=== PATIENT | male | born 1935 | race Caucasian/White ===

== ENCOUNTER 2022-08-19 09:32 | Emergency (ER) | payer OTHER ==
[2022-08-19] MEDS ORDERED: LEVALBUTEROL 1.25 MG/3 ML NEB ONE (09:49)
[2022-08-19] MEDS ORDERED: IPRATROPIUM BROM 0.5MG/2.5ML ONE (09:50)
[2022-08-19 10:07] LABS: Absolute Lymphocytes (CBC) 0.6 K/uL (0.7-4.9); Hematocrit 32.9 % (39.6-49.0); Lymphocytes % 3.5 % (15.3-44.8); MPV 8.9 fL (7.6-11.3); RBC Red Blood Cell Count 3.57 M/uL (4.33-5.43)
[2022-08-19 10:20] LABS: Potassium 3.7 mmol/L (3.5-5.1)
--- NOTE | 2022-08-19 10:32 | RAD REPORT ---
EXAM DESCRIPTION: RAD - Chest Pa And Lat (2 Views) - 08/19/2022 10:26 am CLINICAL HISTORY: Cough Chest pain. COMPARISON: Chest Single View dated 08/11/2016 TECHNIQUE: PA and lateral views of the chest were obtained. FINDINGS: The lungs are hyperexpanded compatible with COPD. The heart is upper limit of normal in si ze. No fracture or aggressive bony process. IMPRESSION: COPD without acute process identified.
[2022-08-19 10:42] LABS: SARS-COV-2 RT PCR NEGATIVE (NEGATIVE)
--- NOTE | 2022-08-19 11:01 | EDPHYS ---
Physician Documentation [facility] Name: Julio Pool Age: 86 yrs Sex: Male : 1935 Arrival Date: 08/19/2022 Time: 09:35 Bed 4 Private MD: ED Physician Sudhir Small HPI: 08/19 10:31 This 86 yrs old Male presents to ER via Ambulatory with complaints of Congestion, kb Cough, Shortness Of Breath. 10:31 The patient or guardian reports cough, that is intermittent, described as mild, kb difficulty breathing, flu symptoms, low-grade fever. Onset: The symptoms/episode began/occurred 4 day(s) ago. Severity of symptoms: At their worst the symptoms were moderate, in the emergency department the symptoms are unchanged. Modifying factors: The symptoms are alleviated by nothing, the symptoms are aggravated by nothing. Associated signs and symptoms: Pertinent positives: fever. The patient has not experienced similar symptoms in the past. The patient has not recently seen a physician. Pt reports cough, congestion and shortness of breath on exertion that started 3-4 days ago. Reports fever initially that has resolved. . Historical: - Allergies: 09:57 No Known Allergies; kc6 - Home Meds: 09:57 losartan Oral [Active]; aspirin 81 mg Oral TbEC 1 tab once daily [Active]; Prednisone kc6 Oral [Active]; Flomax Oral [Active]; - PMHx: 09:57 Hyperlipidemia; Hypertension; Gastric Reflux; polymyagliarheumatica; kc6 - PSHx: 09:57 None; kc6 - Immunization history:: Client reports receiving the 2nd dose of the Covid vaccine, Flu vaccine is up to date. - Social history:: Smoking status: Patient denies any tobacco usage or history of. ROS: 10:30 Abdomen/GI: Negative for abdominal pain, nausea, vomiting, diarrhea, and constipation. kb 10:30 Constitutional: Positive for fever, malaise. 10:30 Respiratory: Positive for cough, dyspnea on exertion, shortness of breath. 10:30 All other systems are negative. Exam: 10:30 Constitutional: This is a well developed, well nourished patient who is awake, alert, kb and in no acute distress. Head/Face: Normocephalic, atraumatic. ENT: Moist Mucous membranes Cardiovascular: Regular rate and rhythm with a normal S1 and S2. No gallops, murmurs, or rubs. No pulse deficits. Abdomen/GI: Soft, non-tender. No distention Back: No spinal tenderness. No costovertebral tenderness. Full range of motion. Skin: Warm, dry with normal turgor. Normal color. MS/ Extremity: Pulses equal, no cyanosis. Neurovascular intact. Full, normal range of motion. Neuro: Awake and alert, GCS 15, oriented to person, place, time, and situation. Moves all extremities. Normal gait. Psych: Awake, alert, with orientation to person, place and time. Behavior, mood, and affect are within normal limits. 10:30 Respiratory: the patient does not display signs of respiratory distress, Respirations: normal, Breath sounds: wheezing: expiratory that is mild, is heard in the left upper lobe and left lower lobe. Vital Signs: 09:55 BP 186 / 84; Pulse 93; Resp 18 S; Temp 97.7(TE); Pulse Ox 92% on R/A; Weight 74.84 kg kc6 (R); Height 5 ft. 10 in. (177.80 cm) (R); Pain 0/10; 09:55 Body Mass Index 23.67 (74.84 kg, 177.80 cm) kc6 MDM: 09:38 Patient medically screened. kb 10:30 Data reviewed: vital signs, nurses notes. Data interpreted: Pulse oximetry: on room air kb is 92 %. Interpretation: acceptable. 10:54 Counseling: I had a detailed discussion with the patient and/or guardian regarding: the kb historical points, exam findings, and any diagnostic results supporting the discharge/admit diagnosis, lab results, radiology results, the need for outpatient follow up, a family practitioner, to return to the emergency department if symptoms worsen or persist or if there are any questions or concerns that arise at home. 11:04 Response to treatment: the patient's symptoms have markedly improved after treatment. kb ED course: Pt reports he feels almost back to normal after neb treatment. Pt has been on steroids for some time and currently tapering off. . 08/19 09:43 Order name: CBC with Diff; Complete Time: 10:18 kb 08/19 09:43 Order name: Basic Metabolic Panel; Complete Time: 10:22 kb 08/19 09:43 Order name: Chest Pa And Lat (2 Views) XRAY; Complete Time: 10:41 kb 08/19 09:43 Order name: COVID-19/FLU A+B; Complete Time: 10:50 kb 08/19 09:43 Order name: IV Start; Complete Time: 09:55 kb Administered Medications: :55 Drug: Xopenex (levalbuterol) 1.25 mg Route: Inhalation; kc6 10:11 Follow up: Response: No adverse reaction 6 09:55 Drug: AtroVENT (ipratropium) Aerosol 0.5 mg Route: Inhalation; kc6 10:10 Follow up: Response: No adverse reaction kc6 Disposition: 11:46 PA/[employer]'s history reviewed, patient interviewed, and examined. I agree with assessment [id number] and care plan and confirm the diagnosis (es) above. Attestation: The patient's history, exam findings, diagnostics, and a summary of any interventions or procedures was reviewed in detail with Jacquelyn KRUGER. Disposition Summary: 08/19/22 11:01 Discharge Ordered Location: Home kb Condition: Stable kb Diagnosis - Cough kb - Fever, unspecified kb Followup: kb - With: Emergency Department - When: As needed - Reason: Worsening of condition Followup: kb - With: Private Physician - When: 2 - 3 days - Reason: Recheck today's complaints, Continuance of care, Re-evaluation by your physician Discharge Instructions: - Discharge Summary Sheet kb - Acute Bronchitis, Adult, [id number] kb - Cough, Adult, [id number] kb - Chronic Obstructive Pulmonary Disease Exacerbation, [id number] kb Forms: - Medication Reconciliation Form kb - Thank You Letter kb - Antibiotic Education kb - Prescription Opioid Use kb Prescriptions: - albuterol sulfate 90 mcg/actuation Inhalation HFA aerosol inhaler - inhale 2 puff by INHALATION route every 4-6 hours As needed; 1 Inhaler; kb Refills: 0, Product Selection Permitted - Zithromax 500 mg Oral Tablet - take 1 tablet by ORAL route once daily for 5 days; 5 tablet; Refills: 0, kb Product Selection Permitted Signatures: Dispatcher [employer] Jacquelyn Bean FNP-C FNP-Ckb Rosillo, Jose, MD MD [id number] Silvia Hanson RN RN kc6
--- NOTE | 2022-08-19 11:01 | ER ---
Nurse's Notes [facility] Name: Julio Pool Age: 86 yrs Sex: Male : 1935 Arrival Date: 08/19/2022 Time: 09:35 Bed 4 Private MD: Diagnosis: Cough;Fever, unspecified Presentation: 08/19 09:55 Chief complaint: Patient states: he has been short of breath with cough and congestion kc6 since tuesday. Coronavirus screen: Vaccine status: Patient reports receiving the 2nd dose of the covid vaccine. At this time, the client does not indicate any symptoms associated with coronavirus-19. Ebola Screen: No symptoms or risks identified at this time. Initial Sepsis Screen: Does the patient meet any 2 criteria? No. Patient's initial sepsis screen is negative. Does the patient have a suspected source of infection? No. Patient's initial sepsis screen is negative. Risk Assessment: Do you want to hurt yourself or someone else? Patient reports no desire to harm self or others. Onset of symptoms was August 15, 2022. 09:55 Method Of Arrival: Ambulatory [facility] 09:55 Acuity: JANNET 3 kc6 Triage Assessment: 09:59 General: Appears in no apparent distress. comfortable, Behavior is calm, cooperative, kc6 appropriate for age. Pain: Denies pain. EENT: Reports nasal congestion. Neuro: Cano Agitation-Sedation Scale (RASS): 0 - Alert and Calm Level of Consciousness is awake, alert, obeys commands, Oriented to person, place, time, situation, Appropriate for age. Cardiovascular: Heart tones S1 S2 present Capillary refill < 3 seconds. Respiratory: Reports shortness of breath cough that is productive, Airway is patent Trachea midline Respiratory effort is even, unlabored, Respiratory pattern is regular, symmetrical, Breath sounds are clear bilaterally. GI: No signs and/or symptoms were reported involving the gastrointestinal system. : No signs and/or symptoms were reported regarding the genitourinary system. Derm: No signs and/or symptoms reported regarding the dermatologic system. Skin is intact, Skin is pink, warm \T\ dry. Musculoskeletal: No signs and/or symptoms reported regarding the musculoskeletal system. Circulation, motion, and sensation intact. Capillary refill < 3 seconds, Range of motion: intact in all extremities. Historical: - Allergies: 09:57 No Known Allergies; kc6 - Home Meds: 09:57 losartan Oral [Active]; aspirin 81 mg Oral TbEC 1 tab once daily [Active]; Prednisone kc6 Oral [Active]; Flomax Oral [Active]; - PMHx: 09:57 Hyperlipidemia; Hypertension; Gastric Reflux; polymyagliarheumatica; kc6 - PSHx: 09:57 None; kc6 - Immunization history:: Client reports receiving the 2nd dose of the Covid vaccine, Flu vaccine is up to date. - Social history:: Smoking status: Patient denies any tobacco usage or history of. Screenin:01 [facility] ED Fall Risk Assessment (Adult) History of falling in the last 3 months, kc6 including since admission No falls in past 3 months (0 pts) Confusion or Disorientation No (0 pts) Intoxicated or Sedated No (0 pts) Impaired Gait No (0 pts) Mobility Assist Device Used No (0 pt) Altered Elimination No (0 pt) Score/Fall Risk Level 0 - 2 = Low Risk. Abuse screen: Denies threats or abuse. Denies injuries from another. Nutritional screening: No deficits noted. Tuberculosis screening: No symptoms or risk factors identified. Assessment: 10:00 Reassessment: please see triage assessment. Cardiovascular: Heart tones S1 S2 present kc6 Capillary refill < 3 seconds. Respiratory: Reports shortness of breath cough that is Airway is patent Trachea midline Respiratory effort is even, unlabored, Respiratory pattern is regular, symmetrical, Breath sounds are clear bilaterally. Vital Signs: 09:55 BP 186 / 84; Pulse 93; Resp 18 S; Temp 97.7(TE); Pulse Ox 92% on R/A; Weight 74.84 kg kc6 (R); Height 5 ft. 10 in. (177.80 cm) (R); Pain 0/10; 09:55 Body Mass Index 23.67 (74.84 kg, 177.80 cm) kc6 ED Course: 09:35 Patient arrived in ED. rg4 09:37 Jacquelyn Miller FNP-C is PHCP. kb 09:37 Sudhir Small MD is Attending Physician. kb 09:45 Silvia Hanson RN is Primary Nurse. kc6 09:57 Triage completed. kc6 10:01 Inserted saline lock: 20 gauge in right antecubital area, using aseptic technique. kc6 ,using aseptic technique. placed by GENARO. Blood collected. 10:02 Arm band placed on. kc6 10:02 Patient has correct armband on for positive identification. Bed in low position. Call kc6 light in reach. Side rails up X2. Adult w/ patient. 10:28 Chest Pa And Lat (2 Views) XRAY In Process Unspecified. EDMS 11:30 No provider procedures requiring assistance completed. IV discontinued, intact, kc6 bleeding controlled, No redness/swelling at site. Pressure dressing applied. Administered Medications: 09:55 Drug: Xopenex (levalbuterol) 1.25 mg Route: Inhalation; kc6 10:11 Follow up: Response: No adverse reaction kc6 09:55 Drug: AtroVENT (ipratropium) Aerosol 0.5 mg Route: Inhalation; kc6 10:10 Follow up: Response: No adverse reaction kc6 Medication: 11:31 VIS not applicable for this client. kc6 Outcome: 11:01 Discharge ordered by . maxi 11:30 Discharged to home ambulatory, with family. kc6 11:30 Condition: stable 11:30 Discharge instructions given to patient, family, Instructed on discharge instructions, follow up and referral plans. medication usage, Demonstrated understanding of instructions, follow-up care, medications, Prescriptions given X 2. 11:31 Patient left the ED. kc6 Signatures: Dispatcher [employer] Jacquelyn Bean, CNC SERVICE TECHNICIAN-C CNC SERVICE TECHNICIAN-Thu Gee rg4 Silvia Hanson, RN RN kc6
[2022-08-19 11:38] VITALS: BP 186/84; TEMP 97.7; O2SAT 92
== END 2022-08-19 11:31 | disposition home or self-care (01) ==
LOC: ER 09:32
DX: R05.9 Cough, unspecified (principal); R50.9 Fever, unspecified; I10 Essential (primary) hypertension; E78.5 Hyperlipidemia, unspecified; Z20.822 Contact with and (suspected) exposure to COVID-19
CPT/HCPCS: 85025; 80048; 36415; 0240U; 71046; 99284; J7614; J7644